=== PATIENT | female | born 1955 | race Caucasian/White ===

== ENCOUNTER → 2025-01-18 10:59 | Outpatient (CLI) | payer MEDICARE, SELFPAY ==
--- NOTE | 2025-01-18 11:41 | EKG_ITS ---
[facility] [address] [place] [address] Test Date: 2025-01-18 Pat Name: Dara Wheeler Department: Room: Gender: Female Strategic Consultant: : [id number] Requested By: Order Number: [id number] Reading MD: Vijay Garcia MD Measurements Intervals [place]avinia Rate: 52 P: 54 IL: 164 QRS: 64 QRSD: 80 T: 18 QT: 404 QTc: 375 Interpretive Statements Sinus bradycardia Electronically Signed On 01-19-2025 7:19:23 PDT by Vijay Garcia MD
== END ==
PROVIDERS: Referring Provider Orthopaedic Surgery; Visit Provider Orthopaedic Surgery
DX: Z01.818 Encounter for other preprocedural examination (principal)
CPT/HCPCS: 93005